=== PATIENT | female | born 1940 | race Caucasian/White ===

== ENCOUNTER 2022-01-19 06:08 | Observation (INO) ==
[2022-01-19] MEDS ORDERED: ACETAMINOPHEN 500 MG TABLET PO ONE (07:18)
[2022-01-19] MEDS ORDERED: SCOPOLAMINE 1.5 MG PATCH TRANSDERM ONE (07:18)
[2022-01-19] MEDS ORDERED: DIAZEPAM 5 MG TABLET PO ONE (07:18)
[2022-01-19] MEDS ORDERED: GABAPENTIN 400 MG CAPSULE PO ONE (07:18)
[2022-01-19] MEDS ORDERED: FAMOTIDINE 20 MG TABLET PO ONE (07:18)
[2022-01-19] MEDS: LACTATED RINGERS 1,000 ML IV SCH ×3 (07:27→16:06)
[2022-01-19] MEDS ORDERED: BUPIVACAINE 0.5% 50 ML VIAL ONE (08:44)
[2022-01-19] MEDS ORDERED: DEXAMETHASONE 4 MG/1 ML VIAL ONE (08:45)
[2022-01-19] MEDS ORDERED: MIDAZOLAM 2 MG/2 ML VIAL ONE (08:45)
[2022-01-19] MEDS ORDERED: fentaNYL 100 MCG/2 ML VIAL ONE ×2 (08:45→10:34)
[2022-01-19] MEDS ORDERED: ISOSULFAN BLUE 5 ML VIAL SUBCUT ONE (09:07)
[2022-01-19] MEDS ORDERED: TISSUE ADHESIVE 1 EACH APPLICATOR TOP ONE (09:08)
[2022-01-19] MEDS ORDERED: propofoL 200 MG/20 ML VIAL IV ONE (09:16)
[2022-01-19] MEDS ORDERED: PHENYLEPHRINE 1 MG/10 ML SYRINGE IV ONE (09:16)
[2022-01-19] MEDS ORDERED: LIDOCAINE 2% 5 ML VIAL ONE (09:16)
[2022-01-19] MEDS ORDERED: GLYCOPYRROLATE 0.4 MG/2 ML VIAL ONE (10:06)
[2022-01-19] MEDS ORDERED: ePHEDrine 50 MG/ML VIAL ONE (10:07)
[2022-01-19] MEDS ORDERED: ONDANSETRON 4 MG/2 ML VIAL ONE (12:11)
[2022-01-19] MEDS ORDERED: ACETAMINOPHEN 325 MG TABLET PO PRN (12:11)
[2022-01-19] MEDS ORDERED: HYDROmorphone 1 MG/1 ML SYRINGE IV PRN (12:11)
[2022-01-19] MEDS ORDERED: ONDANSETRON 4 MG/2 ML VIAL IV PRN (12:11)
[2022-01-20] MEDS: LACTATED RINGERS 1,000 ML IV SCH ×2 (01:04→04:30)
[2022-01-20 05:16] LABS: Basophils % 0.1 % (0.0-0.8); Eosinophils % 0.1 % (0.00-10.9); Hematocrit 32.4 VOL% (35.7-47.0); Hemoglobin 10.8 GM/DL (12.0-16.0); Immature Granulocytes % 0.4 %; Immature Granulocytes Absolute 0.03 #; Lymphocytes # 1.7 10*3/uL (1.4-4.0); Mean Corpuscular HGB Conc 33.3 GM/DL (32-36); Mean Corpuscular Volume 96.4 FL (87-102); Mean Platelet Volume 10.3 FL (9.6-12.0); Monocytes # 0.5 10*3/uL (0.11-0.8); Monocytes % 6.7 % (1.7-12.7); Neutrophils % 69.7 % (38.7-73.9); Platelet Count 123 T/CUMM (130-400); Red Blood Count 3.36 MC/CUMM (3.8-5.5); Red Cell Distribution Width 13.1 % (9.3-17.3); White Blood Count 7.4 T/CUMM (4-12)
[2022-01-20 05:35] LABS: Calcium 8.4 MG/DL (8.5-10.1); Osmolality,Calculated 285.1 MOS/KG (273-304); Potassium 4.4 MMOL/L (3.5-5.1)
[2022-01-20] MEDS: PANTOPRAZOLE 40 MG TABLET PO SCH (06:01)
[2022-01-20] MEDS ORDERED: diphenhydrAMINE CAP 25 MG CAPSULE PO SCH (21:00)
[2022-01-21 05:38] LABS: Hematocrit 33.3 VOL% (35.7-47.0); Hemoglobin 11.1 GM/DL (12.0-16.0)
[2022-01-21] MEDS: PANTOPRAZOLE 40 MG TABLET PO SCH (06:51)
[2022-01-21] MEDS ORDERED: MONTELUKAST 10 MG TABLET PO SCH (09:00)
[2022-01-21] MEDS ORDERED: ASCORBIC ACID 500 MG TABLET PO SCH (09:00)
[2022-01-21 14:46] VITALS: BP 127/54
== END 2022-01-21 14:47 | disposition home or self-care (01) ==
LOC: N.OR 06:08 → N.SDSINP 06:11 → INTOOBSV 12:11 → N.5E 13:41
PROVIDERS: ADMIT Student in an Organized Health Care Education/Training Program; ATTEND Student in an Organized Health Care Education/Training Program